=== PATIENT | female | born 1985 | race African-American/Black ===

== ENCOUNTER 2021-09-13 07:31 | Emergency (ER) | payer MEDICAID ==
[~2021-09-13] VITALS: Ht 165.1 cm; Wt 88.0 kg
[2021-09-13 07:38] VITALS: BP 116/80
[2021-09-13] MEDS ORDERED: PYR200 MT (07:54)
[2021-09-13] MEDS ORDERED: NITR-87 MT (07:54)
[2021-09-13] MEDS ORDERED: NITROFURANTOIN 100MG M/M CAPSULE PO ONE (08:00)
== END 2021-09-13 08:14 | disposition home or self-care (01) ==
LOC: ER 07:31
DX: N39.0 Urinary tract infection, site not specified (principal)
CPT/HCPCS: 81025; 99283

== ENCOUNTER 2022-01-12 07:44 | Emergency (ER) | payer MEDICAID ==
[~2022-01-12] VITALS: Ht 162.6 cm; Wt 84.0 kg
[~2022-01-12 07:44] MED LIST: NITR-87 MT; PYR200 MT
[2022-01-12] MEDS ORDERED: KETOROLAC 60MG/2ML VIAL IM ONE (08:15)
[2022-01-12 08:34] VITALS: BP 120/79
[2022-01-12] MEDS ORDERED: NAPR-1176 MT (09:04)
== END 2022-01-12 09:19 | disposition home or self-care (01) ==
LOC: ER 07:44
DX: S90.32XA Contusion of left foot, initial encounter (principal); V00.131A Fall from skateboard, initial encounter; Y93.51 Activity, roller skating (inline) and skateboarding; Y92.488 Other paved roadways as the place of occurrence of the external cause
CPT/HCPCS: 73630; 96372; 99283; J1885